=== PATIENT | female | born 1975 | race Two or more races ===

== ENCOUNTER → 2023-03-11 | Outpatient (CLI) | payer OTHER ==
[2023-03-11 10:47] LABS: Basophils # (auto) 0.1 10 ^3/uL (0-0.2); Eosinophils # (auto) 0.2 10 ^3/uL (0-0.8); Eosinophils % (auto) 1.6 % (0.0-7.0); Hemoglobin 10.5 g/dL (12.2-16.2); Monocytes % (auto) 10.1 % (0.0-12.0); Red Cell Distribution Width 18.6 % (11.8-14.3)
[2023-03-11 10:50] LABS: Basophils % (auto) 0.5 % (0.0-2.0); Hematocrit 34.1 % (36.0-46.0); Lymphocytes # (auto) 1.8 10 ^3/uL (0.4-5.4); Lymphocytes % (auto) 14.7 % (10.0-50.0); Mean Corpuscular Hemoglobin 20.4 pg (28.0-32.0); Mean Corpuscular Hgb Conc. 30.7 g/dL (32.0-36.0); Mean Corpuscular Volume 66.6 fL (80.0-100.0); Monocytes # (auto) 1.3 10 ^3/uL (0-1.3); Neutrophils # (auto) 9.2 10 ^3/uL (1.6-8.6); Neutrophils % (auto) 73.1 % (37.0-80.0); Red Blood Cells 5.12 10^6/uL (4.0-5.20); White Blood Cell 12.5 10^3/uL (4.4-10.8)
[2023-03-11 11:16] LABS: Free T3 1.86 pg/mL (2.3-4.2)
[2023-03-11 11:17] LABS: Free T4 (Free Thyroxine) 0.47 ng/dL (0.89-1.76)
[2023-03-11 11:19] LABS: Alanine Aminotransferase 43 U/L (7-40)
[2023-03-11 11:21] LABS: Aspartate Aminotransferase 26 U/L (13-40)
[2023-03-11 11:45] LABS: Erythrocyte Sedimentation Rate 17 mm/hr (0-20)
[2023-03-11 12:19] LABS: Hypochromia Marked; Platelet Estimate Increased
== END | disposition home or self-care (01) ==
LOC: LAB 10:14
PROVIDERS: ATTEND Internal Medicine
DX: E06.1 Subacute thyroiditis (principal); B34.9 Viral infection, unspecified
CPT/HCPCS: 36415; 84439; 84450; 84460; 84481; 85025; 85652